=== PATIENT | female | born 1950 | race Caucasian/White ===

== ENCOUNTER 2019-05-01 11:18 | Emergency (ER) | payer MEDICARE ==
--- NOTE | 2019-05-01 15:10 | EDM.PDOC ---
ED HPI GENERAL MEDICAL PROBLEM - General Chief Complaint: Wound Recheck Stated Complaint: FISH HOOK Time Seen by Provider: 05/01/19 11:35 Source of Information: Reports: Patient History Limitations: Reports: No Limitations - History of Present Illness INITIAL COMMENTS - FREE TEXT/NARRATIVE: Pt has fish anais embedded in her right thumb. Apparently patient was getting the fish of the hook, and the fish was moving and accidentally the vance got stuck into her right thumb. Pt's has tried to pull the fish hook out and has been unsuccessful. Pt has no pain, but has been bleeding form the site. Pt's last tetanus was 3 years ago. no other complaints. 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 Denies: Bruising, Pruritis, Rash ED EXAM, GENERAL - Physical Exam Exam: See Below Exam Limited By: No Limitations General Appearance: Alert, WD/WN, No Apparent Distress Eye Exam: Bilateral Eye: EOMI, PERRL Ears: Normal External Exam, Normal Canal, Hearing Grossly Normal, Normal TMs Ear Exam: Bilateral Ear: Auricle Normal, Canal Normal, TM normal Nose: Normal Inspection, Normal Mucosa, No Blood Throat/Mouth: Normal Inspection, Normal Lips, Normal Teeth, Normal Gums, Normal Oropharynx, Normal Voice, No Airway Compromise Head: Atraumatic, Normocephalic Neck: Normal Inspection, Supple, Non-Tender, Full Range of Motion Respiratory/Chest: No Respiratory Distress, Lungs Clear, Normal Breath Sounds, No Accessory Muscle Use, Chest Non-Tender Cardiovascular: Normal Peripheral Pulses, Regular Rate, Rhythm, No Edema, No Gallop, No JVD, No Murmur, No Rub Skin Exam: Warm, Other (Right thumb: there is fish hook stuck at the tip of the right thumb. Minimally tender.) Course - Vital Signs Text/Narrative:: Pt reassured. After consent was taken. The area around the vance was infiltrated with 1% lido about 0.5cc. After good pain control obtained, the vance was removed using needle technique. Pt tolerated the procedure. Simple dressing done. PT advised not to wet the wound and keep it clean and dry for 3 days. Daily dressing. Last Recorded V/S: Last Vital Signs Temp 97.9 F 05/01/19 12:22 Pulse 85 05/01/19 12:22 Resp 16 05/01/19 12:22 BP 123/75 05/01/19 12:22 Pulse Ox Departure - Departure Time of Disposition: 12:00 Disposition: Home, Self-Care 01 Condition: Good Clinical Impression: Fish hook injury of finger of right hand - Discharge Information *PRESCRIPTION DRUG MONITORING PROGRAM REVIEWED*: Not Applicable *COPY OF PRESCRIPTION DRUG MONITORING REPORT IN PATIENT ROMEO: Not Applicable Instructions: Puncture Wound Referrals: PCP,None [Primary Care Provider] - Forms: ED Department Discharge Care Plan Goals: Keep clean and dry for 3 days. Use bacitracin and keep bandaged. Can use glove when fishing. Return with any signs of infection - Problem List & Annotations (1) Fish hook injury of finger of right hand SNOMED Code(s): 58601554 Code(s): S69.91XA - UNSP INJURY OF RIGHT WRIST, HAND AND FINGER(S), INIT ENCNTR Status: Acute - Problem List Review Problem List Initiated/Reviewed/Updated: Yes - Assessment/Plan Assessment:: FISH HOOK RIGHT THUMB Plan: Pt reassured. After consent was taken. The area around the vance was infiltrated with 1% lido about 0.5cc. After good pain control obtained, the vance was removed using needle technique. Pt tolerated the procedure. Simple dressing done. PT advised not to wet the wound and keep it clean and dry for 3 days. Daily dressing.
[2019-05-04] MEDS ORDERED: Lidocaine 1% PF 2 ML SDV INJECT ONE (04:21)
[2019-05-04] MEDS ORDERED: Bacitracin Oint 1 GM U/D Packet TOP ONE (04:36)
== END 2019-05-01 11:43 | disposition home or self-care (01) ==
LOC: LB.ED 11:18
DX: S60.351A Superficial foreign body of right thumb, initial encounter (principal); W45.8XXA Other foreign body or object entering through skin, initial encounter
CPT/HCPCS: 99283; J2001